=== PATIENT | male | born 1950 | race Caucasian/White ===

== ENCOUNTER 2021-10-29 08:56 | Outpatient (REF) | payer MEDICARE, OTHER, SELFPAY ==
--- NOTE | ~2021-10-29 | XR_ITS ---
EXAMINATION: XR BILATERAL HIPS WITH AP PELVIS CLINICAL INFORMATION: Bilateral hip pain COMPARISON: None TECHNIQUE: AP view of the pelvis and 2 views of each hip were obtained. FINDINGS: Bone alignment is normal. No fracture or dislocation is seen. There is bilateral hip arthritis with joint space narrowing and osteophyte formation, left greater than right. Bones of the pelvis are unremarkable. There is soft tissue arterial calcification. XR/XR hip BI w PEL1V IMPRESSION: Bilateral hip arthritis, left greater than right.
--- NOTE | ~2021-10-29 | XR_ITS ---
EXAMINATION: XR LUMBOSACRAL SPINE CLINICAL INFORMATION: Low back and hip pain COMPARISON: None TECHNIQUE: Three views of the lumbosacral spine. FINDINGS: Bone alignment is normal. No fracture or dislocation is seen. There is mild degenerative spondylosis at L3-L4 and L4-L5. There is lower lumbar spine facet arthritis. Disc spaces are normal. There is atherosclerotic disease. XR/XR lumbar spine 2-3V IMPRESSION: Mild degenerative changes.
== END 2021-10-29 08:57 | disposition home or self-care (01) ==
LOC: HO.XRAY 08:56
PROVIDERS: PCP Pediatrics; Visit Provider Internal Medicine Rheumatology
DX: M54.50 Low back pain, unspecified (principal); M25.551 Pain in right hip; M25.552 Pain in left hip; M65.9 Synovitis and tenosynovitis, unspecified; M19.041 Primary osteoarthritis, right hand; M19.042 Primary osteoarthritis, left hand; M17.10 Unilateral primary osteoarthritis, unspecified knee
CPT/HCPCS: 72100; 73521; 99212

== ENCOUNTER → 2021-11-06 08:25 | Outpatient (BNVA) | payer MEDICARE, OTHER, SELFPAY | PROVIDERS: PCP Pediatrics; Visit Provider Internal Medicine Rheumatology | DX: M17.12 Unilateral primary osteoarthritis, left knee (principal) | CPT/HCPCS: 20610 ==

== ENCOUNTER → 2021-11-13 08:02 | Outpatient (BNVA) | payer MEDICARE, OTHER, SELFPAY | PROVIDERS: PCP Pediatrics; Visit Provider Internal Medicine Rheumatology | DX: M17.12 Unilateral primary osteoarthritis, left knee (principal) | CPT/HCPCS: 20610 ==

== ENCOUNTER → 2021-11-20 08:01 | Outpatient (BNVA) | payer MEDICARE, OTHER, SELFPAY | PROVIDERS: PCP Pediatrics; Visit Provider Internal Medicine Rheumatology | DX: M17.10 Unilateral primary osteoarthritis, unspecified knee (principal) | CPT/HCPCS: 20605 ==

== ENCOUNTER → 2022-04-22 10:28 | Outpatient (BNVA) | payer MEDICARE, OTHER, SELFPAY | PROVIDERS: PCP Pediatrics; Visit Provider Internal Medicine Rheumatology | DX: M65.9 Synovitis and tenosynovitis, unspecified (principal); M17.10 Unilateral primary osteoarthritis, unspecified knee | CPT/HCPCS: 20550; 99212 ==

== ENCOUNTER 2022-10-29 10:15 | Outpatient (AMB) | payer MEDICARE, OTHER, SELFPAY ==
[2022-10-29 10:26] VITALS: BP 124/72; PULSE 76; TEMP 36.3; O2SAT 97; BMI 30.5
--- NOTE | 2022-10-29 10:26 | A.OFFVIS_ITS ---
Intake Vital Signs 10/29/22 10:26 Height 6 ft 2 in Weight 237 lb 7.005 oz BMI 30.5 BP 124/72 Blood Pressure Location Rt brachial Position Sitting Pulse 76 Pulse Source Pulse Oximeter Temp 97.3 F Temp Source Skin Pulse Oximetry (%) 97 Intake Visit Reasons: oa knee? euflexxa Intake Note: * Pt presents today for knee OA follow up and Euflexxa injection * Reports skin cancer removed right shoulder [facility] in [place] 3weeks ago. 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 He has been receiving once a year Euflexxa injections. They have been helping for about 10 months. He received the last when he thinks in September or October last year. There has been no recent injury or swelling of the knee. He has seen Orthopedics about his shoulder pain and received bilateral corticosteroid injections about 6 weeks ago. Those were helpful. I had also give him some flexor tenosynovial injections for flexor tenosynovitis and that remains asymptomatic currently. [facility] Medical History (Updated 08/25/22 @ 14:41 by Clark Miller MD) Umbilical hernia Surgical History (Updated 10/29/22 @ 10:36 by JESUS Wheatley) H/O shoulder surgery History of appendectomy History of prostate surgery S/P arthroscopic surgery of left knee S/P hernia surgery Status post surgical removal of malignant neoplasm of skin Family History Mother Stroke Acute arthritis Osteoporosis Father High cholesterol Social History Household Members: Spouse Housing: House Are you a primary acute care nursing assistant to a significant other at home: No Do you presently have visiting nurse or other home services: No 75 years or older and lives alone: No Alcohol intake: current Alcohol intake frequency: a few times a week Alcohol type: beer Patient Tobacco Use Status: Former Tobacco user Years Smoked: Quit 50 years ago e-Cigarette/Vaping Use: Never Used service: No Current occupational status: retired Review of Systems Const Details: Negative for appetite change, weight change, fever, chills, malaise and fatigue Card Details: Negative chest pain, edema and syncope Resp Details: Negative for SOB, cough and wheezing GI Details: Negative indigestion/heartburn, nausea, abdominal pain, bowel changes, diarrhea, constipation and bloody stool. Endo Details: Negative for polyuria and polydypsia Philippe/Lymph Details: Negative for excessive bruising or bleeding. Physical Exam Vital Signs: Last Vital Signs Temp 97.3 F 10/29/22 10:26 Pulse 76 10/29/22 10:26 BP 124/72 10/29/22 10:26 Pulse Ox 97 10/29/22 10:26 BMI result Body Mass Index 30.5 APPEARANCE: Patient in no acute distress EXTREMITIES:? No edema, no calf tenderness, normal peripheral pulses. Hands:? Right:? Mild tenderness at the base of the thumb.? No tenderness or swelling in the MCP joints.? There is nontender bony enlargement at the 2nd and 3rd PIP and the 5th DIP joints.? No sensory loss, flexor tendon triggering or thenar atrophy.? Left:? Slight tenderness at the base of the thumb.? There is no tenderness or swelling in the MCP joints.? Flexor tendons are not tender or triggering.? There is nontender bony enlargement at the 2nd and 3rd PIP joints and the 5th D IP joint. Wrists:? Normal pain-free range of motion without tenderness, swelling, increased warmth or erythema. Elbows:. Normal pain-free range of motion without tenderness, swelling, increased warmth or erythema. Shoulders: ?? Full range of motion without pain. No tenderness, weakness, swelling, increased warmth or erythema. Hips:? Full range of motion without pain. Hip bursa:.? No tenderness. Knees:?? Right:? Normal pain-free range motion without tenderness or swelling.? Left: Some valgus deformity, mild discomfort with extremes of motion, minimal medial and lateral tenderness without redness or effusion.? Mild patellofemoral crepitus. Office Procedures Joint Injection/Drain Joint Injection/Drain Details: With the patient's consent the left knee was prepped with ChloraPrep and alcohol. The skin was anesthetized with 2 cc of 1% lidocaine. The knee was then injected with 20 mg of Euflexxa. The patient tolerated the procedure with no immediate adverse effects. Lot No: [id number] Exp. Date: 2023-09-08 Primary Site: left knee Coding Procedure code (CPT) selection complete Assessment & Plan Assessment & Plan (1) Osteoarthritis of knee: Comment: Left knee: Euflexa - 10/06,10/07, 11/07, 11/08 Code(s): M17.10 - Unilateral primary osteoarthritis, unspecified knee Plan The patient seems to be symptomatic once again from osteoarthritis in the left knee. Given the good response in the past to the Euflexxa series of injections another series seems reasonable. We reviewed potential side effects and benefits of such injections. With the patient's consent the left knee was prepped with ChloraPrep and alcohol. The skin was anesthetized with 2 cc of 1% lidocaine. The knee was then injected with 20 mg of Euflexxa. The patient tolerated the procedure with no immediate adverse effects. He will schedule back for 1 week in 2 weeks for the 2nd and 3rd injections. The OA in the hands remains stable. There are no symptoms currently of flexor tenosynovitis. Orthopedics helped him with corticosteroid injections in the shoulders. Orders: Orders AMB Joint Injection/Aspiration Today M17.10 - Unilateral primary osteoarthritis, unspecified knee Coding Level of Care Code Est Pt Level 3 (58810) Diagnoses Osteoarthritis of knee M17.10
== END 2022-10-29 11:31 | disposition home or self-care (01) ==
LOC: HO.RHE 10:15
PROVIDERS: PCP Pediatrics; Visit Provider Internal Medicine Rheumatology
DX: M17.10 Unilateral primary osteoarthritis, unspecified knee (principal)
CPT/HCPCS: 99213

== ENCOUNTER → 2022-10-29 | Outpatient (BNVA) | payer MEDICARE, OTHER, SELFPAY | PROVIDERS: PCP Pediatrics; Visit Provider Internal Medicine Rheumatology | DX: M17.12 Unilateral primary osteoarthritis, left knee (principal) | CPT/HCPCS: 99212; J7323 ==

== ENCOUNTER 2022-11-05 09:59 | Outpatient (AMB) | payer MEDICARE, OTHER, SELFPAY ==
--- NOTE | 2022-11-05 10:10 | A.OFFVIS_ITS ---
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 The injection last week was uneventful. [facility] Medical History (Updated 08/25/22 @ 14:41 by Clark Miller MD) Umbilical hernia Surgical History H/O shoulder surgery History of appendectomy History of prostate surgery S/P arthroscopic surgery of left knee S/P hernia surgery Status post surgical removal of malignant neoplasm of skin Family History Mother Stroke Acute arthritis Osteoporosis Father High cholesterol Social History Household Members: Spouse Housing: House Are you a primary dog day care attendant to a significant other at home: No Do you presently have visiting nurse or other home services: No 75 years or older and lives alone: No Alcohol intake: current Alcohol intake frequency: a few times a week Alcohol type: beer Patient Tobacco Use Status: Former Tobacco user Years Smoked: Quit 50 years ago e-Cigarette/Vaping Use: Never Used service: No Current occupational status: retired Review of Systems Const Details: Negative for appetite change, weight change, fever, chills, malaise and fatigue Endo Details: Negative for polyuria and polydypsia Philippe/Lymph Details: Negative for excessive bruising or bleeding. Physical Exam Vital Signs: Last Vital Signs Temp 97.3 F 11/05/22 10:11 Pulse 75 11/05/22 10:11 BP 120/72 11/05/22 10:11 Pulse Ox 95 11/05/22 10:11 BMI result Body Mass Index 30.7 APPEARANCE: Patient in no acute distress Knees: Left: Slight discomfort with extremes of range of motion. There is a medial eschar from the previous injection site which is not tender with no surrounding induration. Right:? Normal pain-free range of motion without tenderness, swelling, increased warmth or erythema.? There is no effusion or crepitation ? Office Procedures Joint Injection/Drain Joint Injection/Drain Primary Site: left knee Coding Details: With the patient's consent the left knee was prepped with ChloraPrep and alcohol. The skin was anesthetized with 2 cc of 1% lidocaine. The knee was then injected with 20 mg of Euflexxa. The patient tolerated the procedure with no immediate adverse effects. The 46155 - Large joint Procedure code (CPT) selection complete Assessment & Plan Assessment & Plan (1) Osteoarthritis of knee: Comment: Left knee: Euflexa - 10/06,10/07, 11/07, 11/08 Code(s): M17.10 - Unilateral primary osteoarthritis, unspecified knee Plan The 1st injection went well so we will give the 2nd injection today. With the patient's consent the left knee was prepped with ChloraPrep and alcohol. The skin was anesthetized with 2 cc of 1% lidocaine. The knee was then injected with 20 mg of Euflexxa. The patient tolerated the procedure with no immediate adverse effects. He will schedule back for the 3rd injection next week. Orders: Orders AMB Joint Injection/Aspiration Today M17.10 - Unilateral primary osteoarthritis, unspecified knee Coding Level of Care Code Procedure Only Diagnoses Osteoarthritis of knee M17.10 CPT Codes Coding - 05085 Large joint: 43757 - Large joint ([id number])
[2022-11-05 10:11] VITALS: BP 120/72; PULSE 75; TEMP 36.3; O2SAT 95; BMI 30.7
== END 2022-11-05 11:08 | disposition home or self-care (01) ==
PROVIDERS: PCP Pediatrics; Visit Provider Internal Medicine Rheumatology
DX: M17.12 Unilateral primary osteoarthritis, left knee (principal)
CPT/HCPCS: 20610

== ENCOUNTER → 2022-11-05 09:59 | Outpatient (BNVA) | payer MEDICARE, OTHER, SELFPAY | PROVIDERS: PCP Pediatrics; Visit Provider Internal Medicine Rheumatology | DX: M17.10 Unilateral primary osteoarthritis, unspecified knee (principal) | CPT/HCPCS: 20610 ==

== ENCOUNTER 2022-11-12 09:21 | Outpatient (AMB) | payer MEDICARE, OTHER, SELFPAY ==
--- NOTE | 2022-11-12 09:27 | MHC.OFFVIS ---
Intake Vital Signs 11/12/22 09:29 Height 6 ft 2 in Weight 241 lb BMI 30.9 BP 110/64 Blood Pressure Location Lt brachial Position Sitting Respiration 18 Pulse 71 Pulse Source Pulse Oximeter Temp 97.7 F Temp Source Skin Pulse Oximetry (%) 97 Oxygen Delivery Method Room Air Intake Visit Reasons: OA Knee/Euflexxa Allergies acetaminophen [From Percocet] Allergy (Intermediate, Verified 11/12/22 09:33) increased anxiety ibuprofen Allergy (Intermediate, Verified 11/12/22 09:33) eyes swell oxycodone [From Percocet] Allergy (Intermediate, Verified 11/12/22 09:33) increased anxiety HPI HPI Comments History of Present Illness Details The patient returns today for the 3rd and final weekly Euflexxa injection in his left knee for his osteoarthritis. The 1st 2 injections have gone well with no adverse effects. He thinks there has been some improvement so far in the knee pain symptoms. [facility] Medical History (Updated 11/12/22 @ 09:54 by Clark Miller MD) Umbilical hernia Surgical History H/O shoulder surgery History of appendectomy History of prostate surgery S/P arthroscopic surgery of left knee S/P hernia surgery Status post surgical removal of malignant neoplasm of skin Family History Mother Stroke Acute arthritis Osteoporosis Father High cholesterol Social History Household Members: Spouse Housing: House Are you a primary landcare officer to a significant other at home: No Do you presently have visiting nurse or other home services: No 75 years or older and lives alone: No Alcohol intake: current Alcohol intake frequency: a few times a week Alcohol type: beer Patient Tobacco Use Status: Former Tobacco user Years Smoked: Quit 50 years ago e-Cigarette/Vaping Use: Never Used service: No Current occupational status: retired Review of Systems Const Details: Negative for appetite change, weight change, fever, chills, malaise and fatigue Endo Details: Negative for polyuria and polydypsia Philippe/Lymph Details: Negative for excessive bruising or bleeding. Physical Exam Vital Signs: Last Vital Signs Temp 97.7 F 11/12/22 09:29 Pulse 71 11/12/22 09:29 Resp 18 11/12/22 09:29 BP 110/64 11/12/22 09:29 Pulse Ox 97 11/12/22 09:29 Oxygen Delivery Method Room Air 11/12/22 09:29 BMI result Body Mass Index 30.9 APPEARANCE: Patient in no acute distress Knees:? Left:? Slight discomfort with extremes of range of motion.? There is slight medial compartment tenderness but no redness, effusion, or warmth.? Right:? Normal pain-free range of motion without tenderness, swelling, increased warmth or erythema.? There is no effusion or crepitation Office Procedures Joint Injection/Drain Joint Injection/Drain Primary Site: left knee Coding Details: With the patient's consent the left knee was prepped with ChloraPrep and alcohol. The skin was anesthetized with 2 cc of 1% lidocaine. The knee was then injected with 20 mg of Euflexxa. The patient tolerated the procedure with no immediate adverse effects. 31922 - Large joint Procedure code (CPT) selection complete Assessment & Plan Assessment & Plan (1) Osteoarthritis of knee: Comment: Left knee: Euflexa - 10/06,10/07, 11/07, 11/08, 11/09 Code(s): M17.10 - Unilateral primary osteoarthritis, unspecified knee Plan With the patient's consent the left knee was prepped with ChloraPrep and alcohol. The skin was anesthetized with 2 cc of 1% lidocaine. The knee was then injected with 20 mg of Euflexxa. The patient tolerated the procedure with no immediate adverse effects. Hopefully the patient will have as good a response to the Euflexxa as he has had in previous years. If he wants to go with another go around it could be considered in 6 months. He could contact the office here to see if we are currently able to handle that option or he could be referred for orthopedic evaluation. Orders: Orders AMB Joint Injection/Aspiration Today M17.10 - Unilateral primary osteoarthritis, unspecified knee Coding Level of Care Code Procedure Only Diagnoses Osteoarthritis of knee M17.10 CPT Codes Coding - 15501 Large joint: 96861 - Large joint ([id number])
[2022-11-12 09:29] VITALS: BP 110/64; PULSE 71; RESP 18; TEMP 36.5; O2SAT 97; BMI 30.9
== END 2022-11-12 09:56 | disposition home or self-care (01) ==
PROVIDERS: PCP Pediatrics; Visit Provider Internal Medicine Rheumatology
DX: M17.12 Unilateral primary osteoarthritis, left knee (principal)
CPT/HCPCS: 20610

== ENCOUNTER → 2022-11-12 09:21 | Outpatient (BNVA) | payer MEDICARE, OTHER, SELFPAY | PROVIDERS: PCP Pediatrics; Visit Provider Internal Medicine Rheumatology | DX: M17.12 Unilateral primary osteoarthritis, left knee (principal) | CPT/HCPCS: 20610; J7323 ==

== ENCOUNTER 2023-05-14 10:23 | Outpatient (AMB) | payer MEDICARE, OTHER, SELFPAY ==
[2023-05-14 10:27] VITALS: BP 126/74; PULSE 74; O2SAT 96; BMI 31.0
--- NOTE | 2023-05-14 10:27 | A.OFFVIS_ITS ---
Intake Vital Signs 05/14/23 10:27 Height 6 ft 2 in Weight 241 lb 13.553 oz BMI 31.0 BP 126/74 Blood Pressure Location Rt brachial Position Sitting Pulse 74 Pulse Source Pulse Oximeter Pulse Oximetry (%) 96 Intake Visit Reasons: Left trigger finger/Cortisone injection Intake Note: Pt last seen by Dr Miller on 11/12/22 presents today for follow up and injection. 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 Accompanied by: Spouse Allergies acetaminophen [From Percocet] Allergy (Intermediate, Verified 05/14/23 10:33) increased anxiety ibuprofen Allergy (Intermediate, Verified 05/14/23 10:33) eyes swell oxycodone [From Percocet] Allergy (Intermediate, Verified 05/14/23 10:33) increased anxiety Medication List - Last Reconciled 05/14/23 by Maddie Miranda MD aspirin (Adult Low Dose Aspirin) 81 mg PO DAILY atenolol 25 mg PO DAILY atorvastatin 80 mg PO DAILY benazepril 5 mg PO DAILY cyclobenzaprine 10 mg PO TID PRN empagliflozin (Jardiance) 10 mg PO DAILY fluticasone propionate 50 mcg/actuation (Allergy Relief (fluticasone)) 2 sprays intranasal DAILY gabapentin 300 mg PO DAILY glipizide 10 mg PO BID omeprazole 40 mg PO DAILY semaglutide (Ozempic) 1 mg subcut QWEEK triamcinolone acetonide 0.1% 1 appl topical BID HPI HPI Comments History of Present Illness Details This is a 72-year-old male with generalized osteoarthritis who presents for follow-up. States that he has been having triggering of his right 5th fing er. It happens more at night after a busy day working with his hands. He had an injection by Dr. Miller 04/2022 which was quite effective until about 2 months ago. Requesting another injection today. States that about a month ago he slipped on ice and fell on his right knee however it has aggravated his left knee arthritis. He has not noticed any swelling. But he does have pain and stiffness of his left knee especially at night. Denies any, locking, catching or buckling of his knee. [facility] Medical History Umbilical hernia Surgical History Status post surgical removal of malignant neoplasm of skin S/P hernia surgery History of appendectomy History of prostate surgery S/P arthroscopic surgery of left knee H/O shoulder surgery Family History Mother Stroke Acute arthritis Osteoporosis Father High cholesterol Social History Household Members: Spouse Housing: House Are you a primary child care specialist to a significant other at home: No Do you presently have visiting nurse or other home services: No 75 years or older and lives alone: No Alcohol intake: current Alcohol intake frequency: a few times a week Alcohol type: beer Patient Tobacco Use Status: Former Tobacco user Years Smoked: Quit 50 years ago e-Cigarette/Vaping Use: Never Used service: No Current occupational status: retired Review of Systems Musc Reports arthralgias, Denies joint swelling and Reports stiffness Physical Exam Vital Signs: Last Vital Signs Pulse 74 05/14/23 10:27 BP 126/74 05/14/23 10:27 Pulse Ox 96 05/14/23 10:27 BMI result Body Mass Index 31.0 Extrem Other: Left 5th finger flexor tendon tenderness and some triggering Significant deformity of his left knee and pain with full flexion . No swelling or warmth Office Procedures Tendon Injection Tendon Injection Details: With patient's consent, The palm of the Right hand was prepped with ChloraPrep and alcohol. Under topical ethyl chloride spray the [5th] flexor tendon sheath was injected with 20 mg of triamcinolone and 0.1 cc of 1% lidocaine. The patient tolerated the procedure without any acute complications. [id number] Tendon Sheath Injection All charges added?: Procedure code (CPT) selection complete Assessment & Plan Assessment & Plan (1) Osteoarthritis of knee: Comment: Left knee: Euflexa - 10/06,10/07, 11/07, 11/08, 11/09 effective Code(s): M17.10 - Unilateral primary osteoarthritis, unspecified knee Qualifiers: Osteoarthritis type: primary Plan: This is a 72-year-old male with generalized osteoarthritis who presents for right 5th finger trigger injection. With patient's consent, right 5th finger was injected with Kenalog today. Most recent injected by Dr. Miller was in 04/2022. And was effective for at least 10 months Patient has left knee osteoarthritis and has been receiving Euflexxa injections yearly every October. Most recent Euflexxa series was 10/2022. Will schedule patient for 3 weekly visits . Advised patient to call the clinic 1 or 2 weeks and advanced in order get the Euflexxa approved (2) Flexor tenosynovitis of finger: Code(s): M65.9 - Synovitis and tenosynovitis, unspecified Plan: As above Plan I spent 25 minutes reviewing patient's chart, evaluating patient, counseling patient and documenting in the chart Orders: Orders AMB Injection-Tendon Today M65.9 - Synovitis and tenosynovitis, unspecified Coding Level of Care Code Est Pt Level 4 (66085) Diagnoses Osteoarthritis of knee M17.10 Osteoarthritis type: primary Flexor tenosynovitis of finger M65.9 CPT Codes Tendon Injection - Tendon Injection 1: [id number] Tendon Sheath Injection ([id number])
== END 2023-05-14 11:07 | disposition home or self-care (01) ==
PROVIDERS: PCP Pediatrics; Visit Provider Student in an Organized Health Care Education/Training Program
DX: M17.12 Unilateral primary osteoarthritis, left knee (principal); M65.9 Synovitis and tenosynovitis, unspecified; M65.351 Trigger finger, right little finger
CPT/HCPCS: 20550; 99213

== ENCOUNTER → 2023-05-14 10:23 | Outpatient (BNVA) | payer MEDICARE, OTHER, SELFPAY | PROVIDERS: PCP Pediatrics; Visit Provider Student in an Organized Health Care Education/Training Program | DX: M65.351 Trigger finger, right little finger (principal); M65.9 Synovitis and tenosynovitis, unspecified; M17.10 Unilateral primary osteoarthritis, unspecified knee | CPT/HCPCS: 20550; 99212 ==

== ENCOUNTER 2023-11-02 09:52 | Outpatient (AMB) | payer MEDICARE, OTHER, SELFPAY ==
--- NOTE | 2023-11-02 09:53 | A.OFFVIS_ITS ---
Vital Signs 11/02/23 09:59 Height 6 ft 2 in Weight 237 lb 10.533 oz BMI 30.5 BP 122/70 Blood Pressure Location Lt brachial Position Sitting Respiration 18 Pulse 68 Pulse Source Pulse Oximeter Pulse Oximetry (%) 98 Oxygen Delivery Method Room Air Intake Visit Reasons: OA KNEE/Euflexxa/CM Intake Note: Patient presents for OA knee/Euflexxa. Fluid in knee and wondering if I should get the injection. Allergies acetaminophen [From Percocet] Allergy (Intermediate, Verified 11/02/23 09:59) increased anxiety ibuprofen Allergy (Intermediate, Verified 11/02/23 09:59) eyes swell oxycodone [From Percocet] Allergy (Intermediate, Verified 11/02/23 09:59) increased anxiety Medication List - Last Reconciled 11/02/23 by Maddie Miranda MD aspirin (Adult Low Dose Aspirin) 81 mg PO DAILY atenolol 25 mg PO DAILY atorvastatin 80 mg PO DAILY benazepril 5 mg PO DAILY cyclobenzaprine 10 mg PO TID PRN empagliflozin (Jardiance) 10 mg PO DAILY fluticasone propionate 50 mcg/actuation (Allergy Relief (fluticasone)) 2 sprays intranasal DAILY gabapentin 300 mg PO DAILY glipizide 10 mg PO BID omeprazole 40 mg PO DAILY semaglutide (Ozempic) 1 mg subcut QWEEK triamcinolone acetonide 0.1% 1 appl topical BID HPI Comments Details: This is a 72-year-old male with generalized osteoarthritis who presents for follow-up. He is here for his left knee Euflexxa series. States that 2 months ago he twisted his left knee, it was swollen as well as his left calf. He went to the emergency room and had an ultrasound done and there was no DVT. The swelling has come down significantly. He feels that he needs the Euflexxa injection as the knee pain is coming back. [facility] Medical History Umbilical hernia Surgical History Status post surgical removal of malignant neoplasm of skin S/P hernia surgery History of appendectomy History of prostate surgery S/P arthroscopic surgery of left knee H/O shoulder surgery Family History Mother Stroke Acute arthritis Osteoporosis Father High cholesterol Social History Household Members: Spouse Housing: House Are you a primary physician primary care sports medicine to a significant other at home: No Do you presently have visiting nurse or other home services: No 75 years or older and lives alone: No Alcohol intake: current Alcohol intake frequency: a few times a week Alcohol type: beer Patient Tobacco Use Status: Former Tobacco user Years Smoked: Quit 50 years ago e-Cigarette/Vaping Use: Never Used service: No Current occupational status: retired [employer] of [employer] [facility] [place] arthralgias, Denies joint swelling and Reports stiffness Physical Exam Vital Signs: Last Vital Signs Pulse 68 11/02/23 09:59 Resp 18 11/02/23 09:59 BP 122/70 11/02/23 09:59 Pulse Ox 98 11/02/23 09:59 Oxygen Delivery Method Room Air 11/02/23 09:59 BMI result Body Mass Index 30.5 Const General: cooperative, healthy appearing and comfortable Nutritional Appearance: overweight Orientation/consciousness: patient oriented x3 Limitations: no limitations HEENT Head: Yes normocephalic and Yes atraumatic Mouth: moist mucous membranes Resp Effort & Inspection: normal respiratory effort and able to speak in complete sentences Neuro General: patient oriented x3 Extrem Other: Left knee deformity, crepitus, pain with full flexion-extension, small effusion Office Procedures Joint Injection/Drain Joint Injection/Drain Primary Site: left knee Prep: site was prepped using sterile technique and ethochloride spray was applied Approach Used: medial parapatellar Procedure: The patient tolerated the procedure well Coding Details: With the patient's consent the left knee was prepped with ChloraPrep and alcohol. The skin was anesthetized with 2 cc of 1% lidocaine. The knee was then injected with 20 mg of Euflexxa. The patient tolerated the procedure with no immediate adverse effects. 05652 - Large joint Procedure code (CPT) selection complete Assessment & Plan Assessment & Plan (1) Osteoarthritis of knee: Comment: Left knee: Euflexa - 10/06,10/07, 11/07, 11/08, 11/09 effective Code(s): M17.10 - Unilateral primary osteoarthritis, unspecified knee Category: Medical Qualifiers: Osteoarthritis type: primary Plan: This is a 72-year-old male with generalized osteoarthritis who presents for left knee Euflexxa injection series. Patient has left knee osteoarthritis and has been receiving Euflexxa injections yearly every October. They are quite effective for him. With patient's consent, left knee was injected with Euflexxa today. Follow-up next week Plan I spent 25 minutes reviewing patient's chart, evaluating patient, counseling patient and documenting in the chart Orders: Orders AMB Joint Injection/Aspiration Today M17.10 - Unilateral primary osteoarthritis, unspecified knee Coding Level of Care Code Est Pt Level 3 (11464) Diagnoses Osteoarthritis of knee M17.10 Osteoarthritis type: primary CPT Codes Coding - 01640 Large joint: 94464 - Large joint ([id number])
[2023-11-02 09:59] VITALS: BP 122/70; PULSE 68; RESP 18; O2SAT 98; BMI 30.5
== END 2023-11-02 10:31 | disposition home or self-care (01) ==
PROVIDERS: PCP Pediatrics; Visit Provider Student in an Organized Health Care Education/Training Program
DX: M17.0 Bilateral primary osteoarthritis of knee (principal)
CPT/HCPCS: 20610; 99213

== ENCOUNTER → 2023-11-02 09:52 | Outpatient (BNVA) | payer MEDICARE, OTHER, SELFPAY | PROVIDERS: PCP Pediatrics; Visit Provider Student in an Organized Health Care Education/Training Program | DX: M17.12 Unilateral primary osteoarthritis, left knee (principal) | CPT/HCPCS: 20610; 99212 ==

== ENCOUNTER 2023-11-09 09:49 | Outpatient (AMB) | payer MEDICARE, OTHER, SELFPAY ==
--- NOTE | 2023-11-09 09:59 | A.OFFVIS_ITS ---
Vital Signs 11/09/23 10:02 Height 6 ft 2 in Weight 236 lb 15.951 oz BMI 30.4 BP 115/70 Blood Pressure Location Lt brachial Position Sitting Respiration 18 Pulse 70 Pulse Source Pulse Oximeter Pulse Oximetry (%) 97 Oxygen Delivery Method Room Air Intake Visit Reasons: OA KNEE/Euflexxa/CM Intake Note: Patient presents for OA knee/Euflexxa. Allergies acetaminophen [From Percocet] Allergy (Intermediate, Verified 11/09/23 10:01) increased anxiety ibuprofen Allergy (Intermediate, Verified 11/09/23 10:01) eyes swell oxycodone [From Percocet] Allergy (Intermediate, Verified 11/09/23 10:01) increased anxiety Medication List - Last Reconciled 11/09/23 by Maddie Miranda MD aspirin (Adult Low Dose Aspirin) 81 mg PO DAILY atenolol 25 mg PO DAILY atorvastatin 80 mg PO DAILY benazepril 5 mg PO DAILY cyclobenzaprine 10 mg PO TID PRN empagliflozin (Jardiance) 10 mg PO DAILY fluticasone propionate 50 mcg/actuation (Allergy Relief (fluticasone)) 2 sprays intranasal DAILY gabapentin 300 mg PO DAILY glipizide 10 mg PO BID omeprazole 40 mg PO DAILY semaglutide (Ozempic) 1 mg subcut QWEEK triamcinolone acetonide 0.1% 1 appl topical BID HPI Comments Details: This is a 73-year-old male with generalized osteoarthritis who presents for follow-up. He is here for his left knee Euflexxa series. He has here for the 2nd injection. 1st injection done last week was uneventful [facility] Medical History Umbilical hernia Surgical History Status post surgical removal of malignant neoplasm of skin S/P hernia surgery History of appendectomy History of prostate surgery S/P arthroscopic surgery of left knee H/O shoulder surgery Family History Mother Stroke Acute arthritis Osteoporosis Father High cholesterol Social History Household Members: Spouse Housing: House Are you a primary daycare provider to a significant other at home: No Do you presently have visiting nurse or other home services: No 75 years or older and lives alone: No Alcohol intake: current Alcohol intake frequency: a few times a week Alcohol type: beer Patient Tobacco Use Status: Former Tobacco user Years Smoked: Quit 50 years ago e-Cigarette/Vaping Use: Never Used service: No Current occupational status: retired [employer] of [employer] Reports arthralgias and Denies joint swelling Physical Exam Vital Signs: Last Vital Signs Pulse 70 11/09/23 10:02 Resp 18 11/09/23 10:02 BP 115/70 11/09/23 10:02 Pulse Ox 97 11/09/23 10:02 Oxygen Delivery Method Room Air 11/09/23 10:02 BMI result Body Mass Index 30.4 Const General: cooperative, healthy appearing and comfortable Nutritional Appearance: overweight Orientation/consciousness: patient oriented x3 Limitations: no limitations HEENT Head: Yes normocephalic and Yes atraumatic Mouth: moist mucous membranes Resp Effort & Inspection: normal respiratory effort and able to speak in complete sentences Neuro General: patient oriented x3 Extrem Other: Left knee deformity, crepitus, mild warmth pain with full flexion-extension Office Procedures Joint Injection/Drain Joint Injection/Drain Primary Site: left knee Prep: site was prepped using sterile technique and ethochloride spray was applied Approach Used: medial parapatellar Procedure: The patient tolerated the procedure well Coding Details: With the patient's consent the left knee was prepped with ChloraPrep and alcohol. The skin was anesthetized with 2 cc of 1% lidocaine. The knee was then injected with 20 mg of Euflexxa. The patient tolerated the procedure with no immediate adverse effects. 46745 - Large joint Procedure code (CPT) selection complete Assessment & Plan Assessment & Plan (1) Osteoarthritis of knee: Comment: Left knee: Euflexa - 10/06,10/07, 11/07, 11/08, 11/09 effective Code(s): M17.10 - Unilateral primary osteoarthritis, unspecified knee Category: Medical Qualifiers: Osteoarthritis type: primary Laterality: left Qualified Code(s): M 17.12 - Unilateral primary osteoarthritis, left knee Plan: This is a 73-year-old male with generalized osteoarthritis who presents for left knee Euflexxa injection series. Patient has left knee osteoarthritis and has been receiving Euflexxa injections yearly every October. They are quite effective for him. He is here for the 2nd injection of the series. With patient's consent, left knee was injected with Euflexxa today. Follow-up next week Plan I spent 15 minutes reviewing patient's chart, evaluating patient, counseling patient and documenting in the chart Orders: Orders AMB Joint Injection/Aspiration Today M17.10 - Unilateral primary osteoarthritis, unspecified knee Coding Level of Care Code Est Pt Level 3 (34171) Diagnoses Primary osteoarthritis of left knee M17.12 Osteoarthritis type: primary Laterality: left CPT Codes Coding - 21081 Large joint: 71072 - Large joint ([id number])
[2023-11-09 10:02] VITALS: BP 115/70; PULSE 70; RESP 18; O2SAT 97; BMI 30.4
== END 2023-11-09 11:13 | disposition home or self-care (01) ==
PROVIDERS: PCP Pediatrics; Visit Provider Student in an Organized Health Care Education/Training Program
DX: M17.12 Unilateral primary osteoarthritis, left knee (principal)
CPT/HCPCS: 20610; 99213

== ENCOUNTER → 2023-11-09 09:49 | Outpatient (BNVA) | payer MEDICARE, OTHER, SELFPAY | PROVIDERS: PCP Pediatrics; Visit Provider Student in an Organized Health Care Education/Training Program | DX: M17.12 Unilateral primary osteoarthritis, left knee (principal) | CPT/HCPCS: 20610; 99212 ==

== ENCOUNTER 2023-11-16 09:52 | Outpatient (AMB) | payer MEDICARE, OTHER, SELFPAY ==
[2023-11-16 09:56] VITALS: BP 120/70; PULSE 67; O2SAT 98; BMI 29.8
--- NOTE | 2023-11-16 09:56 | A.OFFVIS_ITS ---
Vital Signs 11/16/23 09:56 Height 6 ft 2 in Weight 231 lb 14.821 oz BMI 29.8 BP 120/70 Blood Pressure Location Lt brachial Position Sitting Pulse 67 Pulse Source Pulse Oximeter Pulse Oximetry (%) 98 Oxygen Delivery Method Room Air Intake Visit Reasons: OA KNEE/Euflexxa/cm Intake Note: Patient last seen on 11/02/23 present today for follow up. Allergies acetaminophen [From Percocet] Allergy (Intermediate, Verified 11/16/23 10:00) increased anxiety ibuprofen Allergy (Intermediate, Verified 11/16/23 10:00) eyes swell oxycodone [From Percocet] Allergy (Intermediate, Verified 11/16/23 10:00) increased anxiety Medication List - Last Reconciled 11/16/23 by Maddie Miranda MD aspirin (Adult Low Dose Aspirin) 81 mg PO DAILY atenolol 25 mg PO DAILY atorvastatin 80 mg PO DAILY benazepril 5 mg PO DAILY cyclobenzaprine 10 mg PO TID PRN empagliflozin (Jardiance) 10 mg PO DAILY fluticasone propionate 50 mcg/actuation (Allergy Relief (fluticasone)) 2 sprays intranasal DAILY gabapentin 300 mg PO DAILY glipizide 10 mg PO BID omeprazole 40 mg PO DAILY semaglutide (Ozempic) 1 mg subcut QWEEK triamcinolone acetonide 0.1% 1 appl topical BID HPI Comments Details: This is a 73-year-old male with generalized osteoarthritis who presents for follow-up. He is here for his left knee Euflexxa series. He has here for the 3rd injection. injection done last week was uneventful. States that he has been having some stiffness of his right hand pinky finger. It gets stiff, but did not get stuck. [facility] Medical History Umbilical hernia Surgical History Status post surgical removal of malignant neoplasm of skin S/P hernia surgery History of appendectomy History of prostate surgery S/P arthroscopic surgery of left knee H/O shoulder surgery Family History Mother Stroke Acute arthritis Osteoporosis Father High cholesterol Social History Household Members: Spouse Housing: House Are you a primary acute care assistant to a significant other at home: No Do you presently have visiting nurse or other home services: No 75 years or older and lives alone: No Alcohol intake: current Alcohol intake frequency: a few times a week Alcohol type: beer Patient Tobacco Use Status: Former Tobacco user Years Smoked: Quit 50 years ago e-Cigarette/Vaping Use: Never Used service: No Current occupational status: retired Review of Systems [facility] [place] [facility] [place] Reports arthralgias and Denies joint swelling Physical Exam Vital Signs: Last Vital Signs Pulse 67 11/16/23 09:56 BP 120/70 11/16/23 09:56 Pulse Ox 98 11/16/23 09:56 Oxygen Delivery Method Room Air 11/16/23 09:56 BMI result Body Mass Index 29.8 Const General: cooperative, healthy appearing and comfortable Nutritional Appearance: overweight Orientation/consciousness: patient oriented x3 Limitations: no limitations HEENT Head: Yes normocephalic and Yes atraumatic Mouth: moist mucous membranes Resp Effort & Inspection: normal respiratory effort and able to speak in complete sentences Neuro General: patient oriented x3 Extrem Other: Left knee deformity, crepitus, mild warmth pain with full flexion-extension No finger triggering today Office Procedures Joint Injection/Aspiration Joint Injection/Aspiration Primary Site: left knee Prep: site was prepped using sterile technique and ethochloride spray was applied Approach Used: medial parapatellar Procedure: The patient tolerated the procedure well Coding Details: With the patient's consent the left knee was prepped with ChloraPrep and alcohol. The skin was anesthetized with 2 cc of 1% lidocaine. The knee was then injected with 20 mg of Euflexxa. The patient tolerated the procedure with no immediate adverse effects. 88500 - Large joint Procedure code (CPT) selection complete Assessment & Plan Assessment & Plan (1) Osteoarthritis of knee: Comment: Left knee: Euflexa - 10/06,10/07, 11/07, 11/08, 11/09 effective Code(s): M17.10 - Unilateral primary osteoarthritis, unspecified knee Category: Medical Qualifiers: Osteoarthritis type: primary Laterality: left Qualified Code(s): M17.12 - Unilateral primary osteoarthritis, left knee Plan: This is a 73-year-old male with generalized osteoarthritis who presents for left knee Euflexxa injection series. Patient has left knee osteoarthritis and has been receiving Euflexxa injections yearly every October. They are quite effective for him. He is here for the 3rd weekly injection of the series. With patient's consent, left knee was injected with Euflexxa today. Follow-up next year (2) Flexor tenosynovitis of finger: Code(s): M65.9 - Synovitis and tenosynovitis, unspecified Category: Medical Plan: s/p RT 5th finger trigger 04/2023 Patient now with ring symptoms but he does not believe symptoms are severe enough to require injection. Advised patient to wrap a Band-Aid around the PIP joint especially at night. Consider buying ring splints. Follow-up as needed if an injection is needed Plan I spent 15 minutes reviewing patient's chart, evaluating patient, counseling patient and documenting in the chart Orders: Orders AMB Joint Injection/Aspiration Today M17.12 - Unilateral primary osteoarthritis, left knee Coding Level of Care Code Est Pt Level 3 (03887) Diagnoses Primary osteoarthritis of left knee M17.12 Osteoarthritis type: primary Laterality: left Flexor tenosynovitis of finger M65.9 CPT Codes Coding - 37097 Large joint: 81803 - Large joint ([id number])
== END 2023-11-16 10:23 | disposition home or self-care (01) ==
PROVIDERS: PCP Pediatrics; Visit Provider Student in an Organized Health Care Education/Training Program
DX: M17.12 Unilateral primary osteoarthritis, left knee (principal); M65.9 Synovitis and tenosynovitis, unspecified
CPT/HCPCS: 20610; 99213

== ENCOUNTER → 2023-11-16 09:52 | Outpatient (BNVA) | payer MEDICARE, OTHER, SELFPAY | PROVIDERS: PCP Pediatrics; Visit Provider Student in an Organized Health Care Education/Training Program | DX: M17.12 Unilateral primary osteoarthritis, left knee (principal); M65.9 Synovitis and tenosynovitis, unspecified | CPT/HCPCS: 20610; 99212 ==

== ENCOUNTER 2024-10-27 13:47 | Outpatient (REF) | payer MEDICARE, OTHER, SELFPAY ==
--- NOTE | ~2024-10-27 | XR_ITS ---
EXAMINATION: X-ray knee bilaterally. CLINICAL INFORMATION: Primary osteoarthritis. TECHNIQUE: AP lateral and sunrise views both knees. COMPARISON: None FINDINGS: Joint space narrowing involving medial lateral and patellofemoral compartments with sclerosis along the articular surface and flattening deformity/volume loss, left knee. There is marginal osteophyte formation femoral condyles and tibial plateau. Small suprapatellar bursa joint effusion, left knee. There is preservation of the joint spaces in the right knee. Small osteophyte formation posterior superior patella. No acute cortical disruption or malalignment. Vascular complications. XR/XR Knee Duglas 4V IMPRESSION: Moderate to severe osteoarthrosis, left knee. No gross degenerative changes in the right knee. Atherosclerosis disease, peripheral. Electronically signed by: Carlos Giang MD 10/28/2024 02:09 PM EDT
--- OUTSIDE RECORDS SUMMARY | 2024-10-28 13:23 | XMS_ITS | Clinical Summary ---
Author Organization [facility] Address [address] [place] [address] Care Team Providers Care Records Management Specialist Name Role Phone Chapo Spencer MD Primary Care Provider [phone] Allergies Active Allergy Reactions Criticality Noted Date [...] 0 02/04/2022 Active ergocalciferol (VITAMIN D2) capsule 86403 units Take 1 capsule (50,000 Units total) [...] age to complete this topic Care Teams Records Management Specialist Relationship Specialty Start Date End Date Chapo Spencer MD [address] [place] [id number] PCP - General Hospitalist Medicine 01/31/22
== END 2024-10-27 13:48 | disposition home or self-care (01) ==
LOC: HO.XRAY 13:47
PROVIDERS: PCP Internal Medicine; Visit Provider Student in an Organized Health Care Education/Training Program
DX: M17.0 Bilateral primary osteoarthritis of knee (principal); M25.562 Pain in left knee
CPT/HCPCS: 20610; 73564; 99212; J7323

== ENCOUNTER 2024-10-27 13:47 | Outpatient (AMB) | payer MEDICARE, OTHER, SELFPAY ==
[2024-10-27 13:49] VITALS: BP 122/64; PULSE 75; O2SAT 97; BMI 29.5
--- NOTE | 2024-10-27 13:49 | MHC.OFFVIS ---
Vital Signs 10/27/24 13:49 Height 6 ft 2 in Weight 229 lb 8.019 oz BMI 29.5 BP 122/64 Blood Pressure Location Lt brachial Position Sitting Pulse 75 Pulse Source Pulse Oximeter Pulse Oximetry (%) 97 Oxygen Delivery Method Room Air Intake Visit Reasons: knee pain / euflexxa #1 Intake Note: Patient presents for 1st injection of Prolia for osteoarthritis of left knee. Accompanied by: Spouse Allergies acetaminophen (From Percocet) Allergy (Intermediate, Verified 11/16/23 10:00) increased anxiety ibuprofen Allergy (Intermediate, Verified 11/16/23 10:00) eyes swell oxycodone (From Percocet) Allergy (Intermediate, Verified 11/16/23 10:00) increased anxiety Medication List - Last Reconciled 10/27/24 by Ida Lazcano MD aspirin (Adult Low Dose Aspirin) 81 mg PO DAILY atenolol 25 mg PO DAILY atorvastatin 80 mg PO DAILY benazepril 5 mg PO DAILY cyclobenzaprine 10 mg PO TID PRN empagliflozin (Jardiance) 10 mg PO DAILY fluticasone propionate 50 mcg/actuation (Allergy Relief (fluticasone)) 2 sprays intranasal DAILY gabapentin 300 mg PO DAILY glipizide 10 mg PO BID omeprazole 40 mg PO DAILY semaglutide (Ozempic) 1 mg subcut QWEEK triamcinolone acetonide 0.1% 1 appl topical BID HPI Comments Details: Patient is a 74 y.o. male with HTN, HLD, DM, GERD and polyarticular arthritis here today for follow up Interval History: Patient last seen 11/16/[address] Miranda - had his 3rd Euflexxa injection - complained of stiffness in the right hand pinky finger which was consistent with trigger finger Today - Complaining of left knee pain Rheumatologic History: OA - Left knee: Euflexa - 10/06, 10/07, 11/07, 11/08, 11/09 effective Current Rheumatology Medication(s): PFSH Medical History Umbilical hernia Surgical History Status post surgical removal of malignant neoplasm of skin S/P hernia surgery History of appendectomy History of prostate surgery S/P arthroscopic surgery of left knee H/O shoulder surgery Family History Mother Stroke Acute arthritis Osteoporosis Father High cholesterol Social History Household Members: Spouse Housing: House Are you a primary career portals teacher to a significant other at home: No Do you presently have visiting nurse or other home services: No 75 years or older and lives alone: No Alcohol intake: current Alcohol intake frequency: a few times a week Alcohol type: beer Patient Tobacco Use Status: Former Tobacco user Years Smoked: Quit 50 years ago e-Cigarette/Vaping Use: Never Used service: No Current occupational status: retired Review of Systems Const Details: Review of Systems Constitutional: Denies fever, chills, weight loss ENT: Denies vision changes, eye pain or eye redness, dental caries, dry mouth GI: Denies nausea, vomiting, diarrhea, abdominal pain, change in BM Pulm: Denies SOB, SAXENA, hemoptysis, wheezing Cards: Denies chest pain, palpitations Skin: Denies Raynaud's, rash, nail changes, photosensitivity, CHILD LIFE SPECIALIST: Denies headaches, weakness, paresthesias, recurrent falls MSK: as per HPI All other systems reviewed and are unremarkable except noted above Physical Exam Vital Signs: BMI result Body Mass Index 29.5 Vital signs reviewed Physical Examination CONSTITUITIONAL Patient alert and cooperative. Well appearing and in no apparent painful distress MSK Knees Right knee: Full ROM. No swelling noted. No TTP of the knee joint lie or pes anserine bursa Left knee: Full ROM. No swelling noted. No TTP of the knee joint lie or pes anserine bursa. Crepitations felt bilaterally Office Procedures AMB Joint Injection/Aspiration Joint Injection/Aspiration Details: Procedure was explained to the patient and informed consent was obtained. ? Risks associated with the procedure were discussed with the patient including but not limited to bleeding, infection, drug reactions and reactions to the topical anesthetic. Patient made aware of signs to look out for infectious complications. The area of interest was identified and confirmed with patient. ?This was subsequently cleaned with chlorhexidine x 2. ? The area was then anesthetized using ethyl chloride spray. 2cc Euflexxa was injected without issue. ?Minimal to no bleeding. ?Patient tolerated procedure. Primary Site: left knee Prep: site was prepped using aseptic technique and ethochloride spray was applied Injected: other (2cc Euflexxa) Approach Used: anterior Procedure: The patient tolerated the procedure well Coding - Large joint Procedure code (CPT) selection complete Office Meds Euflexxa 10 mg/mL (mw 2.4-3.6 million) intra-articular syringe Performing Provider: Ida Lazcano MD [place] [facility] [place] [facility] Administered by: Ida Lazcano MD on 10/27/24 14:16 Dose Route Admin Location Dispensed Lot Number Expiration Date [place] [employer] Application Developer 20 mg intra-articular left knee 2 mL [id number] 08/08/25 [address]-9 [employer] Total Dispensed Waste 2 mL 0 % Assessment & Plan Assessment & Plan (1) Osteoarthritis of knee: Comment: Left knee: Euflexa - 10/06,10/07, 11/07, 11/08, 11/09 effective Code(s): M17.10 - Unilateral primary osteoarthritis, unspecified knee Category: Medical Qualifiers: Osteoarthritis type: primary Laterality: left Qualified Code(s): M17.12 - Unilateral primary osteoarthritis, left knee Plan: #Left Knee OA Patient with left knee OA. Has been having good efficacy with yearly Euflexxa injections. Here today for repeat series Plan - s/p Euflexxa to left knee - XR bilateral knees - RTC 1 week Plan I spent 20 minutes reviewing the record and labs, taking a history, examining the patient, discussing the treatment plan, ordering diagnostic work up and documenting in the medical record Orders: Orders AMB Joint Injection/Aspiration Today M17.12 - Unilateral primary osteoarthritis, left knee XR hip LT min 2V Today M17.0 - Bilateral primary osteoarthritis of knee XR hip RT min 2V Today M17.0 - Bilateral primary osteoarthritis of knee Coding Level of Care Code Est Pt Level 3 (05693) Diagnoses Primary osteoarthritis of left knee M17.12 Osteoarthritis type: primary Laterality: left CPT Codes Coding - 53549 Large joint: 37385 - Large joint ([id number])
--- OUTSIDE RECORDS SUMMARY | 2024-10-27 13:51 | XMS_ITS | Clinical Summary ---
Author Organization [facility] Address [address] [place] [address] Care Team Providers Care Plant Quality Manager Name Role Phone Chapo Spencer MD Primary Care Provider [phone] Allergies Active Allergy Reactions Criticality Noted Date Comments Ibuprofen Swelling 06/24/2005 edema of eye lids Oxycodone-Acetaminophen 08/14/2015 Other reaction(s): Flushing, feeling of warmth Medications Medication Sig Dispensed Refills Start Date End Date Status atenolol (TENORMIN) tablet 25 mg Take 1 tablet (25 mg total) by mouth daily. 0 12/04/2021 Active atorvastatin (LIPITOR) tablet 80 mg Take 1 tablet (80 mg total) by mouth daily. 0 12/03/2021 Active benazepril (LOTENSIN) 5 MG tablet Take 1 tablet (5 mg total) by mouth daily. 0 12/12/2021 Active betamethasone dipropionate (DIPROSONE) 0.05 % cream Apply sparingly twice daily for hand eczema as needed. 0 12/27/2021 Active cyclobenzaprine (FLEXERIL) 10 MG tablet Take 1 Tablet by mouth 3 times daily as needed for Muscle spasms. 0 11/15/2021 Active Jardiance 10 MG tablet Take 1 tablet (10 mg total) by mouth daily. 0 02/04/2022 Active ergocalciferol (VITAMIN D2) capsule 96508 units Take 1 capsule (50,000 Units total) by mouth once a week. 0 01/27/2022 Active gabapentin (NEURONTIN) 100 MG capsule Take 1 Capsule by mouth 2 times daily. 0 01/30/2022 Active glipiZIDE (GLUCOTROL XL) ER 24 hr tablet 10 mg Take 1 tablet by mouth 2 times daily. WITH food 0 01/23/2022 Active HYDROcodone-acetaminop hen (XODOL) 5-300 MG per tablet TAKE 1 TABLET BY MOUTH DAILY NEEDED FOR SEVERE PAIN 0 12/11/2021 Active Ozempic, 1 MG/DOSE, 4 MG/3ML SOPN Inject 1 mg into the skin every 7 days. 0 01/23/2022 Active Family History Medical History Relation Name Comments Hyperlipidemia Father Arthritis Mother Hypertension Mother Relation Name Status Comments Father Mother Social History Tobacco Use Types Packs/Day Years Used Date Smoking Tobacco: Former Cigarettes Smokeless Tobacco: Never Tobacco Cessation:Counseling Given: Not Answered Alcohol Use Standard Drinks/Week Comments Yes 2 (1 standard drink = 0.6 oz pur e alcohol) Sex and Gender Information Value Date Recorded Sex Assigned at Not on file Gender Identity Not on file Sexual Orientation Not on file Job Start Date Occupation Industry Not on file Not on file Not on file Last Filed Vital Signs Vital Sign Reading Time Taken Comments Blood Pressure - - Pulse - - Temperature - - Respiratory Rate - - Oxygen Saturation - - Inhaled Oxygen Concentration - - Weight 112.5 kg (248 lb) 02/12/2022 9:50 AM EDT Height 188 cm (6' 2 ) 02/12/2022 9:50 AM EDT Body Mass Index 31.84 02/12/2022 9:50 AM EDT Plan of Treatment Health Maintenance Due Date Last Done Comments Hepatitis C Screening 1950 Depression Screening 1962 BMI Counseling 1968 Preventative Health Evaluation 1968 Colon Cancer Screening (Colonoscopy) 09/01/1995 Fall Risk Assessment 09/01/2015 DTap / Tdap / Td (2 - Td or Tdap) 07/20/2022 07/20/2012 COVID-19 Vaccine ( season) 2023 07/22/2021, 02/04/2021, 08/04/2020, Additional history exists Influenza Vaccine (#1) 2024 , 01/06/2020, 01/17/2019, Additional history exists RSV Adult > 60+ Yrs or (1 - 1-dose 75+ series) 2025 Pneumococcal Vaccine Completed 12/31/2016, 12/10/2015, 05/19/2011 Shingrix-Zoster Vaccine Completed 05/25/2018, 03/16 Hepatitis B Vaccines Aged Out No long er eligible based on patient's age to complete this topic RSV Ped < 20 months Aged Out No longe r eligible based on patient's age to complete this topic Care Teams Plant Quality Manager Relationship Specialty Start Date End Date Chapo Spencer MD [address] [place] [id number] PCP - General Hospitalist Medicine 01/31/22
== END 2024-10-27 14:21 | disposition home or self-care (01) ==
LOC: HO.RHE 13:47
PROVIDERS: PCP Pediatrics; Visit Provider Student in an Organized Health Care Education/Training Program
DX: M17.12 Unilateral primary osteoarthritis, left knee (principal)
CPT/HCPCS: 20610; 99213

== ENCOUNTER → 2024-10-28 13:22 | Outpatient (BNV) | payer MEDICARE, OTHER, SELFPAY | PROVIDERS: PCP Internal Medicine; Visit Provider Radiology Diagnostic Radiology | DX: M17.12 Unilateral primary osteoarthritis, left knee (principal); I73.9 Peripheral vascular disease, unspecified | CPT/HCPCS: 73564 ==

== ENCOUNTER 2024-11-03 09:54 | Outpatient (AMB) | payer MEDICARE, OTHER, SELFPAY ==
--- NOTE | 2024-11-03 10:06 | MHC.OFFVIS ---
Vital Signs 11/03/24 10:10 Height 6 ft 2 in Weight 229 lb 0.964 oz BMI 29.4 BP 124/78 Blood Pressure Location Lt brachial Position Sitting Pulse 75 Pulse Source Pulse Oximeter Pulse Oximetry (%) 97 Oxygen Delivery Method Room Air Intake Visit Reasons: knee pain/ euflexxa #2 Intake Note: Patient presents for knee pain/Euflexxa #2 follow up. Allergies acetaminophen (From Percocet) Allergy (Intermediate, Verified 11/03/24 10:10) increased anxiety ibuprofen Allergy (Intermediate, Verified 11/03/24 10:10) eyes swell oxycodone (From Percocet) Allergy (Intermediate, Verified 11/03/24 10:10) increased anxiety Medication List - Last Reconciled 11/03/24 by Ida Lazcano MD aspirin (Adult Low Dose Aspirin) 81 mg PO DAILY atenolol 25 mg PO DAILY atorvastatin 80 mg PO DAILY benazepril 5 mg PO DAILY cyclobenzaprine 10 mg PO TID PRN empagliflozin (Jardiance) 10 mg PO DAILY fluticasone propionate 50 mcg/actuation (Allergy Relief (fluticasone)) 2 sprays intranasal DAILY gabapentin 300 mg PO DAILY glipizide 10 mg PO BID omeprazole 40 mg PO DAILY semaglutide (Ozempic) 1 mg subcut QWEEK triamcinolone acetonide 0.1% 1 appl topical BID HPI Comments Details: Patient is a 74 y.o. male with HTN, HLD, DM, GERD and polyarticular arthritis here today for follow up Interval History: Patient last seen 10/27/24 with de - Following up for his Euflexxa series. Last dose was 1 year prior - Received Euflexxa dose 1 Today - [place] improvement in knee pain even after the first dose Rheumatologic History: OA - Left knee: Euflexa - 10/06, 10/07, 11/07, 11/08, 11/09, 11/10 effective Current Rheumatology Medication(s): [facility] Medical History Umbilical hernia Surgical History Status post surgical removal of malignant neoplasm of skin S/P hernia surgery History of appendectomy History of prostate surgery S/P arthroscopic surgery of left knee H/O shoulder surgery Family History Mother Stroke Acute arthritis Osteoporosis Father High cholesterol Social History Household Members: Spouse Housing: House Are you a primary acute care physician to a significant other at home: No Do you presently have visiting nurse or other home services: No 75 years or older and lives alone: No Alcohol intake: current Alcohol intake frequency: a few times a week Alcohol type: beer Patient Tobacco Use Status: Former Tobacco user Years Smoked: Quit 50 years ago e-Cigarette/Vaping Use: Never Used service: No Current occupational status: retired Review of Systems Const Details: Review of Systems Constitutional: Denies fever, chills, weight loss ENT: Denies vision changes, eye pain or eye redness, dental caries, dry mouth GI: Denies nausea, vomiting, diarrhea, abdominal pain, change in BM Pulm: Denies SOB, SAXENA, hemoptysis, wheezing Cards: Denies chest pain, palpitations Skin: Denies Raynaud's, rash, nail changes, photosensitivity, FRUIT DRYER: Denies headaches, weakness, paresthesias, recurrent falls MSK: as per HPI All other systems reviewed and are unremarkable except noted above Physical Exam Vital Signs: Last Vital Signs Pulse 75 11/03/24 10:10 BP 124/78 11/03/24 10:10 Pulse Ox 97 11/03/24 10:10 Oxygen Delivery Method Room Air 11/03/24 10:10 BMI result Body Mass Index 29.4 Vital signs reviewed Physical Examination CONSTITUITIONAL Patient alert and cooperative. Well appearing and in no apparent painful distress MSK Knees Right knee: Full ROM. No swelling noted. No TTP of the knee joint lie or pes anserine bursa Left knee: Full ROM. No swelling noted. No TTP of the knee joint lie or pes anserine bursa. Crepitations felt bilaterally Office Procedures AMB Joint Injection/Aspiration Joint Injection/Aspiration Details: Procedure was explained to the patient and informed consent was obtained. ? Risks associated with the procedure were discussed with the patient including but not limited to bleeding, infection, drug reactions and reactions to the topical anesthetic. Patient made aware of signs to look out for infectious complications. The area of interest was identified and confirmed with patient. ?This was subsequently cleaned with chlorhexidine x3. ? The area was then anesthetized using ethyl chloride spray. 2cc Euflexxa was injected without issue. ?Minimal to no bleeding. ?Patient tolerated procedure. Primary Site: left knee Prep: site was prepped using aseptic technique and ethochloride spray was applied Injected: other (2cc Euflexxa) Approach Used: anterior Procedure: The patient tolerated the procedure well Coding 92801 - Large joint Procedure code (CPT) selection complete Office Meds Euflexxa 10 mg/mL (mw 2.4-3.6 million) intra-articular syringe Performing Provider: Ida Lazcano MD Performing Location: [facility] Rheumatology Administered by: Ida Lazcano MD on 11/03/24 10:47 Dose Route Admin Location Dispensed Lot Number Expiration Date [facility] Log Operations Coordinator 20 mg intra-articular left knee 2 mL [id number] 08/08/25 [address]-7 [employer] Total Dispensed Waste 2 mL 0 % Results Reviewed Results Reviewed: XR Bilateral Knee 10/2024 FINDINGS: Joint space narrowing involving medial lateral and patellofemoral compartments with sclerosis along the articular surface and flattening deformity/volume loss, left knee. There is marginal osteophyte formation femoral condyles and tibial plateau. Small suprapatellar bursa joint effusion, left knee. There is preservation of the joint spaces in the right knee. Small osteophyte formation posterior superior patella. No acute cortical disruption or malalignment. Vascular complications. IMPRESSION: Moderate to severe osteoarthrosis, left knee. No gross degenerative changes in the right knee. Atherosclerosis disease, peripheral. Assessment & Plan Assessment & Plan (1) Osteoarthritis of knee: Comment: Left knee: Euflexa - 10/06,10/07, 11/07, 11/08, 11/09 effective Code(s): M17.10 - Unilateral primary osteoarthritis, unspecified knee Category: Medical Qualifiers: Osteoarthritis type: primary Laterality: left Qualified Code(s): M17.12 - Unilateral primary osteoarthritis, left knee Plan: #Left Knee OA Patient with left knee OA. Has been having good efficacy with yearly Euflexxa injections. Here today for repeat series Plan - s/p Euflexxa to left knee - RTC 1 week Plan I spent 20 minutes reviewing the record and labs, taking a history, examining the patient, discussing the treatment plan, ordering diagnostic work up and documenting in the medical record Orders: Orders AMB Joint Injection/Aspiration Today M17.12 - Unilateral primary osteoarthritis, left knee Coding Level of Care Code Est Pt Level 3 (97110) Diagnoses Primary osteoarthritis of left knee M17.12 Osteoarthritis type: primary Laterality: left CPT Codes Coding - 86951 Large joint: 06207 - Large joint ([id number])
[2024-11-03 10:10] VITALS: BP 124/78; PULSE 75; O2SAT 97; BMI 29.4
--- OUTSIDE RECORDS SUMMARY | 2024-11-03 10:20 | XMS_ITS | Data Portability ---
Author Organization [place] - [facility], Allergy Address [address] [place] [id number] Assessment Encounter Date Assessment Date Assessment LastModified by Organization Details LastModified Time 11/12/2023 11/12/2023 CL & CK - both aids working fine. annual appt made [email or web address] Not available 11/12/2023 14:57:58 05/19/2024 05/19/2024 CL&CK both aids working fine. annual appt made [email or web address] Not available 05/19/2024 11:24:28 09/01/2024 09/01/2024 CL & CK both aids working fine. Annual appt made in March - will need to do rapid repair before warranty expires. [email or web address] Not available 09/01/2024 15:45:38 Plan of Treatment Reminders Order Date Submit Date Provider Last Modified By Organization Details Last Modified Time Details Appointments [facility] Fitting Follow Up (60) 2024 10:00A M UCHE LARSEN, ADELE Not available Not available Not available Lab None recorded . Referral None recorded . Procedures None recorded . Surgeries None recorded . Imaging None recorded . Medication Orders None recorded . Patient TargetsNo targets recorded. Patient InstructionsNo instructions recorded. Reason for Referral None Reported. Results Created Date Observation Date Name Description Value Unit Range Abnormal Flag Note LastModifiedBy Organization Detail LastModifiedTime 12/09/1902/11/2022 imagi ng/di agnos tic resul t No observ ation record ed. [email or web address] Not Available 15:40:18 12/09/19 24 04/24/2022 audio gram No observ ation record ed. [email or web address] Not Available 15:40:27 12/09/19 24 05/14/2023 audio gram No observ ation record ed. [email or web address] Not Available 15:40:30 12/09/19 24 06/05/2022 audio gram No observ ation record ed. [email or web address] Not Available 15:40:32 12/09/19 24 11/13/2022 audio gram No observ ation record ed. [email or web address] Not Available 15:40:36 12/09/19 24 02/11/2022 audio gram No observ ation record ed. [email or web address] Not Available 15:40:41 12/09/19 24 03/27/2022 audio gram No observ ation record ed. [email or web address] Not Available 15:40:48 12/09/19 24 04/10/2022 audio gram No observ ation record ed. [email or web address] Not Available 15:40:50 Result Notes None recorded. Problems Name Problem SNOMED Code Status Onset Date Resolution Date Notes Provider Name and Address Organization Details Recorded Time Noise effects on inner ear 77345347 Active 2021 Noise effects on inner ear, bilateral; Note: Date Diagnosed: 02/11/2022 10:59 AM (H83.3X3) Not Available [facility] 4 03:28:22 Sensorine ural hearing loss of bilateral ears 797515065 Active 2021 Sensorineu ral hearing loss, bilateral; Note: Date Diagnosed: 02/11/2022 10:13 AM (H90.3) Not Available [facility] 4 03:28:22 Sensorine ural hearing loss of bilateral ears 871829347 Active 2024 UCHE LARSEN, [place] [address], [place], [address] , [facility] - [facility] 5 15:44:31 Problem Notes None recorded. Medical Equipment None Reported. Allergies Allergen ID Allergen Name Allergen Category Reaction Reaction Severity Criticality Documentation Date Start Date Code Code System Note Provider Name and Address Organization Details Recorded Time 474166 ibuprofen medicatio n other Not available Not available 09/01/2023 5640 RxNorm React ion: Unkno wn; Not Available [facility] 4 01:18:56 151407 acetamino phen / oxycodone medicatio n other Not available Not available 09/01/2023 46270 3 RxNorm React ion: Unkno wn; Not Available [facility] 4 01:18:57 Medications Name Sig Start Date Stop Date Status Note LastModified by Organization Details LastModified Time cyclobenza fede 10 mg tablet Take 1 tablet (10 mg total) by mouth at bedtime as needed for muscle spasms. active Not Available Not Available No t Available amoxicilli n 500 mg capsule TAKE 1 CAPSULE BY MOUTH THREE TIMES DAILY active Not Available Not Available No t Available atorvastat in 80 mg tablet Take 1 tablet (80 mg total) by mouth 1 (one) time each day. active Not Available Not Available No t Available benazepril 5 mg tablet Take 1 tablet (5 mg total) by mouth 1 (one) time each day. active Not Available Not Available No t Available hydrocodon e 5 mg-acetami nophen 325 mg tablet TAKE 1 TABLET BY MOUTH every 6 hours NEEDED FOR PAIN active Not Available Not Available No t Available glipizide ER 10 mg tablet, extended release 24 hr Take 1 tablet (10 mg total) by mouth 1 (one) time each day in the morning. active Not Available Not Available No t Available betamethas one, augmented 0.05 % topical cream Apply TWICE DAILY to hands NEEDED active Not Available Not Available No t Available glipizide ER 5 mg tablet, extended release 24 hr Take 1 tablet (5 mg total) by mouth 1 (one) time each day before dinner. Along with a 10 mg in the am, Do not crush, chew, or split. active Not Available Not Available No t Available atenolol 25 mg tablet Take 1 Tablet by mouth daily. active Not Available Not Available No t Available gabapentin 300 mg capsule Take 1 Capsule by mouth 2 times daily. active Not Available Not Available No t Available bisacodyl 5 mg tablet,del ayed release Take 2 tablets by mouth right before beginning bowel prep. See instructi ons provided by the office active Not Available Not Available No t Available gabapentin 100 mg capsule active Medicatio n ID: [id number] Br and Name: gabapenti n Send Method: E-Prescri bed Subs Allowed: subs OK Medica tionGener icName: gabapenti n Not Available Not Available Not Available Vitamin D2 1,250 mcg (50,000 unit) capsule active Medicatio n ID: [id number] Br and Name: Vitamin D2 Send Method: E-Prescri bed Subs Allowed: subs OK Medica tionGener icName: Vitamin D2 Not Available Not Available Not Available fluticason e propionate 50 mcg/actuat ion nasal spray,susp ension INSTILL 1 TO 2 SPRAYS IN EACH NOSTRIL DAILY active Not Available Not Available No t Available Adult Low Dose Aspirin 81 mg tablet,del ayed release active Medicatio n ID: [id number] Br and Name: Adult Low Dose Aspirin S end Method: E-Prescri bed Subs Allowed: subs OK Medica tionGener icName: Adult Low Dose Aspirin Not Available Not Available Not Available Prilosec OTC 20 mg tablet,del ayed release active Medicatio n ID: [id number] Br and Name: Prilosec OTC Send Method: E-Prescri bed Subs Allowed: subs OK Medica tionGener icName: Prilosec OTC Not Available Not Available Not Available chlorhexid ine gluconate 0.12 % mouthwash TAKE 10ml BY MOUTH THREE TIMES DAILY. SWISH AND spit active Not Available Not Available No t Available peg 3350-elect rolytes 236 gram-22.74 gram-6.74 gram-5.86 gram solution Start AT 6 PM NIGHT BEFORE procedure drink 1 8oz GLASS AT your own pace TILL complete half OF THE gallon.Fi kierra 2nd half 5 HOURS BEFORE procedure .] active Not Available Not Available No t Available Jardiance 10 mg tablet TAKE 1 TABLET BY MOUTH ONCE DAILY active Not Available Not Available No t Available Ozempic 1 mg/dose (4 mg/3 mL) subcutaneo us pen injector Inject 1 mg under the skin once every 7 (seven) days. active Not Available Not Available No t Available Vitals None Recorded Social History None recorded. Functional Status None recorded. Mental Status None recorded. Family History Nothing Reported. Medical History No medical history recorded. Past Encounters Encounter ID Performer Location Encounter Start Date Encounter Closed Date Diagnosis/Indication Diagnosis SNOMED-CT Code Diagnosis ICD10 Code Diagnosis Note [id number] ADELE ROBLES [place] [place] [facility] [place] [address] [place] [address] 11/12/2023 14:26:00 11/13/2023 06:57:50 Sensorineural hearing loss of bilateral ears 956027078 H90.3 [id number] ADELE ROBLES [place] - [place] [address] [facility],[place] [address] [facility] [address] 05/19/2024 11:16:06 05/23/2024 10:24:20 Sensorineural hearing loss of bilateral ears 182270735 H90.3 [id number] ADELE ROBLES [place] - [place] [address] [facility],[place] [address] [place] [address] 09/01/2024 11:35:40 09/02/2024 09:51:13 Sensorineural hearing loss of bilateral ears 266874672 H90.3 Health Concerns Section Related Observation LastModified by Organization Detai ls LastModified Time None Recorded Concern Status LastModified by Organization Details LastModified Time None Recorded Advance Directives Directive None Recorded Payers Insurance Date Sequence Insurance Name Policy Number Policy Macias Covered Member ID Macias Member ID Guarantor Name 09/01/2024 1 MEDICARE B-[place]: [facility] [employer] Amrit Leal [id number] Amrit Leal 09/01/2024 2 [facility] [id number] Amrit Leal [id number] Amrit Leal Notes Date Note Type Note Provider Name and Address Organization Details Recorded Time 11/12/2023 text/html Known bilateral SNHL. Patient has 1700 GIC benefit. 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 Currently wearing Widex Moment S 440 FABIO R dispensed 04/10/2022 UCHE POSEYEVITT, ADELE [address] [facility] [address], [place], [address], [facility] - [facility] 11/12/2023 14:58:35 05/19/2024 text/html Patient has 1700 GIC benefit. 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 Reports difficulty hearing in everyday situations. Currently wearing: Widex Moment 440 S mRIC R in silver color #2 R/L M receivers small single vent dome. [facility] 04/10/2022 [place] $5000 Excellent fit to real ear. UCHE LARSEN, AUD 100 [facility] [address], [place], [address], [facility] - [facility] 05/19/2024 11:40:17 09/01/2024 text/html Patient has 1700 GIC benefit. 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 Reports difficulty hearing in everyday situations. Currently wearing: Widex Moment 440 S mRIC R in silver color #2 R/L M receivers small single vent dome. [facility] 04/10/2022 [place] $5000Excellent fit to real ear. UCHE LARSEN, AUD [address] [facility] [address], [place], [address], [facility] - [facility] 09/01/2024 15:45:57
--- OUTSIDE RECORDS SUMMARY | 2024-11-03 10:20 | XMS_ITS | Clinical Summary ---
Author Organization [facility] Address [address] [place] [address] Care Team Providers Care Public Housing Manager Name Role Phone Chapo Spencer MD Primary Care Provider [phone] Allergies Active Allergy Reactions Criticality Noted Date [...] 0 02/04/2022 Active ergocalciferol (VITAMIN D2) capsule 63536 units Take 1 capsule (50,000 Units total) [...] age to complete this topic Care Teams Public Housing Manager Relationship Specialty Start Date End Date Chapo Spencer MD [address] [place] [id number] PCP - General Hospitalist Medicine 01/31/22
== END 2024-11-03 11:10 | disposition home or self-care (01) ==
LOC: HO.RHE 09:55
PROVIDERS: PCP Pediatrics; Visit Provider Student in an Organized Health Care Education/Training Program
DX: M17.12 Unilateral primary osteoarthritis, left knee (principal)
CPT/HCPCS: 20610; 99213

== ENCOUNTER → 2024-11-03 09:54 | Outpatient (BNVA) | payer MEDICARE, OTHER, SELFPAY | PROVIDERS: PCP Pediatrics; Visit Provider Student in an Organized Health Care Education/Training Program | DX: M17.12 Unilateral primary osteoarthritis, left knee (principal) | CPT/HCPCS: 20610; 99212; J7323 ==

== ENCOUNTER 2024-11-11 07:03 | Outpatient (AMB) | payer MEDICARE, OTHER, SELFPAY ==
--- OUTSIDE RECORDS SUMMARY | 2024-11-11 07:06 | XMS_ITS | Data Portability ---
Author Organization [place] - [facility], Allergy Address [address] [place] [id number] Assessment Encounter Date Assessment Date Assessment LastModified by Organization Details LastModified Time 11/12/2023 11/12/2023 CL & CK - both aids working fine. annual appt made [email or web address] Not available 11/12/2023 14:57:58 05/19/2024 05/19/2024 CL&CK both aids working fine. annual appt made [email or web address] Not available 05/19/2024 11:24:28 09/01/2024 09/01/2024 CL & CK both aids working fine. Annual appt made in March - will need to do rapid repair before warranty expires. [email or web address] Not available 09/01/2024 15:45:38 Plan of Treatment [...] Recorded Time Noise effects on inner ear [id number] Active 2021 Noise effects on inner ear, bilateral; Note: Date Diagnosed: 02/11/2022 10:59 AM (H83.3X3) Not Available [facility] 4 03:28:22 Sensorine ural hearing loss of bilateral ears [id number] Active 2021 Sensorineu ral hearing loss, bilateral; Note: Date Diagnosed: 02/11/2022 10:13 AM (H90.3) Not Available [facility] 4 03:28:22 Sensorine ural hearing loss of bilateral ears 699644667 Active 2024 UCHE LARSEN, [place] [address], [place], [address] , [facility] - [facility] 5 15:44:31 Problem Notes None recorded. Medical Equipment None Reported. Allergies Allergen ID Allergen Name Allergen Category Reaction Reaction Severity Criticality Documentation Date Start Date Code Code System Note Provider Name and Address Organization Details Recorded Time 615836 ibuprofen medicatio n other Not available Not available 09/01/2023 5640 RxNorm React ion: Unkno wn; Not Available [facility] 4 01:18:56 142281 acetamino phen / oxycodone medicatio n other Not available Not available 09/01/2023 59185 3 RxNorm React ion: Unkno wn; Not Available [facility] 4 01:18:57 Medications Name Sig Start Date [...] 100 mg capsule active Medicatio n ID: [id number] Br and Name: gabapenti n Send Method: E-Prescri bed Subs Allowed: subs [place] Medica tionGener icName: gabapenti n Not Available Not Available Not Available Vitamin D2 1,250 mcg (50,000 unit) capsule active Medicatio n ID: [id number] Br and Name: Vitamin D2 Send Method: E-Prescri bed Subs Allowed: subs [place] Medica tionGener icName: Vitamin D2 Not Available Not Available Not Available fluticason e propionate 50 mcg/actuat ion nasal spray,susp ension INSTILL 1 TO 2 SPRAYS IN EACH NOSTRIL DAILY active Not Available Not Available No t Available Adult Low Dose Aspirin 81 mg tablet,del ayed release active Medicatio n ID: [id number] Br and Name: Adult Low Dose Aspirin S end Method: E-Prescri bed Subs Allowed: subs [place] Medica tionGener icName: Adult Low Dose Aspirin Not Available Not Available Not Available Prilosec OTC 20 mg tablet,del ayed release active Medicatio n ID: [id number] Br and Name: Prilosec OTC Send Method: [...] 8942 [place]ES [place] [address] [facility] [place] 100 [place] [address] 11/12/2023 14:26:00 11/13/2023 06:57:50 Sensorineural hearing loss of bilateral ears [id number] H90.3 [address] [place] 100 [facility],[place] 100 [place] [address] 05/19/2024 11:16:06 05/23/2024 10:24:20 Sensorineural hearing loss of bilateral ears [id number] H90.3 [id number] A[place]LE ROBLES [place] 100 [facility],[place] 100 [place] [address] 09/01/2024 11:35:40 09/02/2024 09:51:13 Sensorineural hearing loss of bilateral ears [id number] H90.3 Health Concerns Section Related Observation LastModified by Organization Detai ls LastModified Time None Recorded Concern Status LastModified by Organization Details LastModified Time None Recorded Advance Directives Directive None Recorded Payers Insurance Date Sequence Insurance Name Policy Number Policy Macias Covered Member ID Macias Member ID Guarantor Name 09/01/2024 1 MEDICARE B-[place]: [facility] Amrit Leal [id number] Amrit Leal 09/01/2024 2 [facility] IN[facility]MN[facility] - [facility] [id number] Amrit Leal [id number] Amrit Leal Notes Date Note Type Note Provider Name and Address Organization Details Recorded Time 11/12/2023 text/html Known bilateral SNHL. Patient has 1700 GIC benefit. 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 Currently wearing Widex Moment S 440 FABIO R dispensed 04/10/2022 UCHE POSEYEVITT, [place] 100 [facility], [place], [address], [facility] - [facility] 11/12/2023 14:58:35 05/19/2024 text/html Patient has 1700 GIC benefit. 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 Reports difficulty hearing in everyday situations. Currently wearing: Widex Moment 440 S mRIC R in silver color #2 R/L M receivers small single vent dome. [facility] 04/10/2022 [place] $5000 Excellent fit to real ear. UCHE LARSEN, [place] 100 [facility], [place], [address], [facility] - [facility] 05/19/2024 11:40:17 09/01/2024 text/html Patient has 1700 GIC benefit. 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 Reports difficulty hearing in everyday situations. Currently wearing: Widex Moment 440 S mRIC R in silver color #2 R/L M receivers small single vent dome. [facility] 04/10/2022 [place] $5000Excellent fit to real ear. UCHE LARSEN, A[place] 100 [facility], [place], [address], [facility] - [facility] 09/01/2024 15:45:57
--- OUTSIDE RECORDS SUMMARY | 2024-11-11 07:06 | XMS_ITS | Clinical Summary ---
Author Organization [facility] Address [address] [address] Phone Care Team Providers Care Hat Blocking Machine Operator Name Role Phone Varsha Ashley MD Unavailable [phone] Rimma Muñoz DPM Unavailable Unavaila Brandy Caceres DPM Unavailable Unavailable Chapo Spencer MD Primary Care Provider Allergies Active Allergy Reactions Criticality Noted Date Comments Ibuprofen 09/28/2023 Oxycodone 09/28/2023 Medications HYDROcodone-aceta minophen (NORCO) 5-325 mg per tablet Take 1 tablet by mouth every 6 (six) hours as needed for pain (specific location in comments). Partial fill ok 10 tablet 4 Active aspirin 81 MG EC tablet 81 mg. Active atenolol (TENORMIN) 25 MG tablet Take 25 mg by mouth daily. Active atorvastatin (LIPITOR) 40 MG tablet 40 mg. Active benazepril (LOTENSIN) 5 MG tablet Take 1 tablet by mouth daily. 4 Active betamethasone, augmented, (DIPROLENE AF) 0.05 % cream Apply TWICE DAILY to hands NEEDED Active cholecalciferol (VITAMIN D3) 25 MCG (1,000 unit) tablet Take by mouth. Active cyclobenzaprine (FLEXERIL) 10 MG tablet Take 1 Tablet by mouth at bedtime as needed for Muscle spasms. Active doxazosin (CARDURA) 2 MG tablet 2 mg. Active JARDIANCE 10 mg tablet Take 10 mg by mouth daily. Active fluticasone propionate (FLONASE) 50 mcg/actuation nasal spray INSTILL 1 TO 2 SPRAYS IN EACH NOSTRIL DAILY 3 Active gabapentin (NEURONTIN) 300 MG capsule take 1 capsule by mouth 2 times daily Active glipiZIDE (GLUCOTROL XL) 10 MG 24 hr tablet Take 1 tablet by mouth 2 times daily. WITH food Active omeprazole (PRILOSEC) 20 MG capsule 20 mg. Active OZEMPIC 1 mg/dose (4 mg/3 mL) subcutaneous injection pen Inject 1 mg under the skin. 4 Active Social History Tobacco Use Types Packs/Day Years Used Date Smoking Tobacco: Never Smokeless Tobacco: Never Tobacco Cessation:Counseling Given: Not Answered Education Answer Date Recorded Are you interested in more education? Not on zabrina e 08/15/2022 Are you concerned about learning? Not on file 08/15/2022 No 08/15/2022 No 08/15/2022 Digital Access Answer Date Recorded No 09/13/2022 No 09/13/2022 Reliable internet access at home? Not on file 09/13/2022 Device with a working camera? Not on file Intimate Partner Violence Answer Date R ecorded Are you denied basic needs s uch as food, clothing, or medical care? No 09/28/2023 In the past 12 months have y ou been in a relationship with a person who hurts, threatens, or tries to control you? No 09/28/2023 Are you denied basic needs s uch as food, clothing, or medical care? No 09/28/2023 In the past 12 months have y ou been in a relationship with a person who hurts, threatens, or tries to control you? No 09/28/2023 Sex and Gender Information Value Date Recorded Sex Assigned at Male 09/28/2023 2:35 PM EDT Legal Sex Male 10:36 PM EDT Gender Identity Male 09/28/2023 2:35 PM EDT Sexual Orientation Straight 09/28/2023 2: 35 PM EDT Last Filed Vital Signs Vital Sign Reading Time Taken Comments Blood Pressure 129/73 09/28/2023 4:16 PM EDT Pulse 69 09/28/2023 4:16 PM EDT Temperature 36.6 C (97.9 F) 09/28/2023 4:16 PM EDT Respiratory Rate 18 09/28/2023 4:16 PM EDT Oxygen Saturation 97% 09/28/2023 4:16 PM EDT Inhaled Oxygen Concentration - - Weight 104.3 kg (230 lb) 09/28/2023 2:37 PM EDT Height 188 cm (6' 2 ) 09/28/2023 2:37 PM EDT Body Mass Index 29.53 09/28/2023 2:37 PM EDT Plan of Treatment Health Maintenance Due Date Last Done Comments CREATININE LEVEL 1950 POTASSIUM LEVEL 1950 DEPRESSION SCREENING 1962 HEPATITIS C SCREENING 1968 COLOGUARD 09/01/1995 COLONOSCOPY 09/01/1995 COLORECTAL CANCER SCREENING 09/01/1995 FIT TEST 09/01/1995 FOBT 09/01/1995 SIGMOIDOSCOPY 09/01/1995 VIRTUAL COLONOSCOPY 09/01/1995 COVID-19 VACCINE ( season) 2023 01/27/2023, 01/23/2022, 07/22/2021, Additional history exists LIPID PANEL 06/30/2028 07/01/2023 Adult Td,Tdap Booster 10/08/2032 10/08/2022 , 07/20/2012, 07/23/2003 PNEUMOCOCCAL VACCINES (50+ years) Completed 12/31/2016, 12/10/2015, 05/19/2011 ZOSTER VACCINES Completed 05/25/2018, 02/19, 09/03/2011 RSV VACCINE Completed 03/06/2023 SMOKING STATUS SCREENING (Once After 26 Yrs) Completed 10/19/2023 HEPATITIS A VACCINES Aged Out No long er eligible based on patient's age to complete this topic HIB VACCINES Aged Out No longer eligi ble based on patient's age to complete this topic MENINGOCOCCAL VACCINES (ACWY) Aged Out No longer eligible based on patient's age to complete this topic MENINGOCOCCAL VACCINES (B) Aged Out N o longer eligible based on patient's age to complete this topic Medical Devices Not on file Insurance MEDICARE PART A & B [id number] [place] [address] MEDICARE SUPPLEMENT Member Subscriber Plan / Payer (Ef fective 2020-Present) Name:Amrit Hodges Relation to Subscriber:Spouse Name:HALEY HODGES Date of :1900 (Home) Address: [address] [place] [address] Payer ID:[id number] ([facility]) Type:Indemnity Address: [address] [address] MEDICARE PART A & B [facility] MEDICARE SUPPLEMENT MEDICARE PART A & B [facility] [employer] MEDICARE SUPPLEMENT MEDICARE PART A & B [id number] [place] [address] [employer] MEDICARE SUPPLEMENT MEDICARE PART A & B [id number] [place] [address] [employer] MEDICARE SUPPLEMENT MEDICARE PART A & B [facility] [employer] MEDICARE SUPPLEMENT MEDICARE PART A & B Member Subscriber Plan / Payer (Ef fective 2020-Present) Name:Amrit Hodges Member ID:[id number] Relation to Subscriber:Self Name:Amrit Hodges Subscriber ID:[id number] Payer ID:[id number] Group ID:Not on file Type:Medicare Address: [employer] [address] [place] [address] [place] [address] [employer] MEDICARE SUPPLEMENT MEDICARE PART A & B Member Subscriber Plan / Payer (Ef fective 2020-Present) Name:Amrit Hodges Member ID:[id number] Relation to Subscriber:Self Name:Amrit Hodges Subscriber ID:[id number] Payer ID:[id number] Group ID:Not on file Type:Medicare Address: [employer] [address] [place] [address] [place] [address] [employer] MEDICARE SUPPLEMENT MEDICARE PART A & B [facility] [employer] MEDICARE SUPPLEMENT Care Teams Hat Blocking Machine Operator Relationship Specialty Start Date End Date Chapo Spencer MD [address] [place] [address] [place] [address] PCP - General Internal Medicine 10/19/23 Varsha Ashley MD [address] [place] [phone] Historical LMR Provider 02/04/17 Rimma Muñoz DPM [address] [facility] [place] [address] Historical LMR Provider 02/04/17 Brandy Fontana DPM [address] [place] [address] Historical LMR Provider 02/04/17 Additional Source Comments The information contained in this document represents components of the legal health record. It is not the complete legal health record.[facility]
--- OUTSIDE RECORDS SUMMARY | 2024-11-11 07:06 | XMS_ITS | Encounter Summary ---
Author Organization [facility] Address [address] [place] [address] Care Team Providers Care Desk Pens Assembler Name Role Phone Chapo Spencer MD Primary Care Provider [phone] Encounter Details Date Type Department Care Team (Late st Contact Info) Description 10/25/2024 Nurse Triage Adult Medicine [address] [phone] Chapo Spencer MD [address] [place] [phone] Social History Tobacco Use Types Packs/Day Years Used Date Smoking Tobacco: Former Cigarettes Q uit: 10/26/1968 Smokeless Tobacco: Never Alcohol Use Standard Drinks/Week Comments Not Currently 2.5 (1 standard drink = 0.6 oz p ure alcohol) Housing Instability Answer Date Recorde d Are you worried that in the next 2 months you may not have stable housing? No 06/09/2024 Food Access & Nutrition Answer Date Rec orded Do you have access to a vari ety of food including fruits and vegetables? Yes 06/09/2024 Access to Healthcare Answer Date Record ed Within the last 3 months, ho w many times did you visit the emergency department for your medical care? 0 06/09/2024 Health Literacy Answer Date Recorded How often do you need to hav e someone help you when you read instructions, pamphlets, or other written material from your doctor or pharmacy? Never 06/09/2024 Caregiver: How often do you need to have someone help you when you read instructions, pamphlets, or other written material from your doctor or pharmacy? Not on file 06/09/2024 Financial Risk Answer Date Recorded How hard is it for you to pa y for the very basics like food, housing, medical care, and air conditioning / heating? Not very hard 06/09/2024 Transportation Answer Date Recorded Has the lack of transportati on kept you from meetings, work, or from getting things needed for daily living? No Has the lack of transportati on kept you from medical appointments or from getting medications? No 06/09/2024 Social Isolation Answer Date Recorded How often do you feel lonely or isolated from th ose around you? Never 06/09/2024 Food Risk Answer Date Recorded Within the past 12 months we worried whether our food would run out before we got money to buy more. Never true 06/09/2024 Within the past 12 months th e food we bought just didn't last and we didn't have money to get more. Never true 06/09/2024 Dependent Care Answer Date Recorded Do you need help finding or paying for care for your loved ones. For example, child development assistant or elderly care for an older adult? No 06/09/2024 Education Answer Date Recorded Do you think completing more education or training, like finishing a GED, going to college, or learning a trade, would be helpful for you? No 06/09/2024 Employment and Income Answer Date Recor ded During the last four weeks, have you been actively looking for work? No 06/09/2024 Living Situation Answer Date Recorded What is your living situation? 0 06/09/2024 Interpersonal Safety Answer Date Record ed Physical Abuse 04/19/2024 Verbal Abuse 04/19/2024 Sex and Gender Information Value Date Recorded Sex Assigned at Male 03/08/2024 8:39 PM EST Legal Sex Male 6:04 PM EST Gender Identity Male 03/08/2024 8:39 PM EST Sexual Orientation Not on file documented as of this encounter Plan of Treatment Upcoming Encounters Date Type Department Care Team (Late st Contact Info) Description 12/08/2024 11:30 AM EDT Office Visit Adult Medicine [address] [phone] Chapo Spencer MD [address] [place] [phone] documented as of this encounter Visit Diagnoses Not on filedocumented in this encounter Additional Health Concerns Assessment Noted Time PHQ-9 Depression Total Score: 0 06/09/19 25 8:59 AM EST documented as of this encounter Care Teams Desk Pens Assembler Relationship Specialty Start Date End Date Chapo Spencer MD [address] [place] [address] PCP - General Internal Medicine 11/12/21 documented as of this encounter
--- OUTSIDE RECORDS SUMMARY | 2024-11-11 07:06 | XMS_ITS ---
Author Name [facility] Organization Unknown Care Team Organization Name Specialty Phone Email Start Date End Da te [facility] Termed, PROVIDER Primary Care 02/25/202211/18
--- NOTE | 2024-11-11 07:26 | A.OFFVIS_ITS ---
Vital Signs 11/11/24 07:31 Height 6 ft 2 in Weight 228 lb 9.91 oz BMI 29.3 BP 120/80 Blood Pressure Location Lt brachial Position Sitting Pulse 76 Pulse Source Pulse Oximeter Pulse Oximetry (%) 97 Oxygen Delivery Method Room Air Intake Visit Reasons: knee pain euflexxa #3 Intake Note: Patient presents for knee pain Euflexxa injection follow up. Allergies acetaminophen (From Percocet) Allergy (Intermediate, Verified 11/11/24 07:31) increased anxiety ibuprofen Allergy (Intermediate, Verified 11/11/24 07:31) eyes swell oxycodone (From Percocet) Allergy (Intermediate, Verified 11/11/24 07:31) increased anxiety Medication List - Last Reconciled 11/11/24 by Ida Lazcano MD aspirin (Adult Low Dose Aspirin) 81 mg PO DAILY atenolol 25 mg PO DAILY atorvastatin 80 mg PO DAILY benazepril 5 mg PO DAILY cyclobenzaprine 10 mg PO TID PRN empagliflozin (Jardiance) 10 mg PO DAILY fluticasone propionate 50 mcg/actuation (Allergy Relief (fluticasone)) 2 sprays intranasal DAILY gabapentin 300 mg PO DAILY glipizide 10 mg PO BID omeprazole 40 mg PO DAILY semaglutide (Ozempic) 1 mg subcut QWEEK triamcinolone acetonide 0.1% 1 appl topical BID HPI Comments Details: Patient is a 74 y.o. male with HTN, HLD, DM, GERD and polyarticular arthritis here today for follow up Interval History: Patient last seen 11/03/24 with md - Following up for his Euflexxa series. Last dose was 1 year prior - Received Euflexxa dose 2 Today - [place] improvement in knee pain even after the first dose Rheumatologic History: OA - Left knee: Euflexa - 10/06, 10/07, 11/07, 11/08, 11/09, 11/10 effective Current Rheumatology Medication(s): [facility] Medical History Umbilical hernia Surgical History Status post surgical removal of malignant neoplasm of skin S/P hernia surgery History of appendectomy History of prostate surgery S/P arthroscopic surgery of left knee H/O shoulder surgery Family History Mother Stroke Acute arthritis Osteoporosis Father High cholesterol Social History Household Members: Spouse Housing: House Are you a primary rn progressive care to a significant other at home: No Do you presently have visiting nurse or other home services: No 75 years or older and lives alone: No Alcohol intake: current Alcohol intake frequency: a few times a week Alcohol type: beer Patient Tobacco Use Status: Former Tobacco user Years Smoked: Quit 50 years ago e-Cigarette/Vaping Use: Never Used service: No Current occupational status: retired Review of Systems Const Details: Review of Systems Constitutional: Denies fever, chills, weight loss ENT: Denies vision changes, eye pain or eye redness, dental caries, dry mouth GI: Denies nausea, vomiting, diarrhea, abdominal pain, change in BM Pulm: Denies SOB, SAXENA, hemoptysis, wheezing Cards: Denies chest pain, palpitations Skin: Denies Raynaud's, rash, nail changes, photosensitivity, PRODUCT SAFETY AND STANDARDS ENGINEER: Denies headaches, weakness, paresthesias, recurrent falls MSK: as per HPI All other systems reviewed and are unremarkable except noted above Physical Exam Exam Exam: Vital signs reviewed Physical Examination CONSTITUITIONAL Patient alert and cooperative. Well appearing and in no apparent painful distress MSK Knees * Right knee: Full ROM. No swelling noted. No TTP of the knee joint lie or pes anserine bursa * Left knee: Full ROM. No swelling noted. No TTP of the knee joint lie or pes anserine bursa. * Crepitations felt bilaterally Vital Signs: Last Vital Signs Pulse 76 11/11/24 07:31 BP 120/80 11/11/24 07:31 Pulse Ox 97 11/11/24 07:31 Oxygen Delivery Method Room Air 11/11/24 07:31 BMI result Body Mass Index 29.3 Office Procedures AMB Joint Injection/Aspiration Joint Injection/Aspiration Details: Procedure was explained to the patient and informed consent was obtained. ? Risks associated with the procedure were discussed with the patient including but not limited to bleeding, infection, drug reactions and reactions to the topical anesthetic. Patient made aware of signs to look out for infectious complications. The area of interest was identified and confirmed with patient. ?This was subsequently cleaned with chlorhexidine x 2. ? The area was then anesthetized using ethyl chloride spray. 2cc Euflexxa was injected without issue. ?Minimal to no bleeding. ?Patient tolerated procedure. Primary Site: left knee Prep: site was prepped using aseptic technique and ethochloride spray was applie d Injected: other (2cc Euflexxa) Procedure: The patient tolerated the procedure well Coding 83104 - Large joint Procedure code (CPT) selection complete Office Meds Euflexxa 10 mg/mL (mw 2.4-3.6 million) intra-articular syringe Performing Provider: Ida Lazcano MD Performing Location[facility] Administered by: Ida Lazcano MD on 11/11/24 08:11 Dose Route Admin Location Dispensed Lot Number Expiration Date [facility] Front Desk Receptionist 20 mg intra-articular left knee 2 mL [id number] 08/08/25 [address]-5 [employer] Total Dispensed Waste 2 mL 0 % Results Reviewed Results Reviewed: XR Bilateral Knee 10/2024 FINDINGS: Joint space narrowing involving medial lateral and patellofemoral compartments with sclerosis along the articular surface and flattening deformity/volume loss, left knee. There is marginal osteophyte formation femoral condyles and tibial plateau. Small suprapatellar bursa joint effusion, left knee. There is preservation of the joint spaces in the right knee. Small osteophyte formation posterior superior patella. No acute cortical disruption or malalignment. Vascular complications. IMPRESSION: Moderate to severe osteoarthrosis, left knee. No gross degenerative changes in the right knee. Atherosclerosis disease, peripheral. Assessment & Plan Assessment & Plan (1) Osteoarthritis of knee: Comment: Left knee: Euflexa - 10/06,10/07, 11/07, 11/08, 11/09 effective Code(s): M17.10 - Unilateral primary osteoarthritis, unspecified knee Category: Medical Qualifiers: Osteoarthritis type: primary Laterality: left Qualified Code(s): M17.12 - Unilateral primary osteoarthritis, left knee Plan: #Left Knee OA Patient with left knee OA. Has been having good efficacy with yearly Euflexxa injections. Here today for repeat series Plan - RTC July 2025 Plan I spent 20 minutes reviewing the record and labs, taking a history, examining the patient, discussing the treatment plan, ordering diagnostic work up and documenting in the medical record Orders: Orders AMB Joint Injection/Aspiration Today M17.12 - Unilateral primary osteoarthritis, left knee Coding Level of Care Code Est Pt Level 3 (44561) Diagnoses Primary osteoarthritis of left knee M17.12 Osteoarthritis type: primary Laterality: left CPT Codes Coding - 80723 Large joint: 84009 - Large joint ([id number])
[2024-11-11 07:31] VITALS: BP 120/80; PULSE 76; O2SAT 97; BMI 29.3
== END 2024-11-11 08:10 | disposition home or self-care (01) ==
LOC: HO.RHE 07:04
PROVIDERS: PCP Pediatrics; Visit Provider Student in an Organized Health Care Education/Training Program
DX: M17.12 Unilateral primary osteoarthritis, left knee (principal)
CPT/HCPCS: 20610; 99213

== ENCOUNTER → 2024-11-11 07:03 | Outpatient (BNVA) | payer MEDICARE, OTHER, SELFPAY | PROVIDERS: PCP Pediatrics; Visit Provider Student in an Organized Health Care Education/Training Program | DX: M17.12 Unilateral primary osteoarthritis, left knee (principal) | CPT/HCPCS: 20610; 99212; J7323 ==